=== PATIENT | female | born 1965 | race Caucasian/White ===

== ENCOUNTER 2017-01-02 06:18 | Inpatient (IN) | payer SELFPAY ==
[~2017-01-02] VITALS: Ht 154.9 cm; Wt 130.1 kg
[2017-01-02 07:09] LABS: BASOPHIL COUNT 0.1 K/uL (0-0.1); EOSINOPHIL (%) 0.9 % (0-5); EOSINOPHIL COUNT 0.1 K/uL (0-0.3); HEMATOCRIT 38.9 % (36.0-46.0); IMMATURE GRANULOCYTE (%) 0.5 % (0.0-0.7); IMMATURE GRANULOCYTE COUNT 0.1 K/uL; INSTRUMENT ABS NEUTROPHIL CT 9.3 K/uL; LYMPHOCYTE COUNT 1.3 K/uL (1.0-2.8); MCH 25.5 PG (29.0-34.0); MCHC 30.3 G/DL (30.0-36.0); MCV 84.2 FL (83-99); MEAN PLAT.VOLUME 9.6 uM^3 (9.5-12.4); MONOCYTE (%) 6.3 % (3-12); MONOCYTE COUNT 0.7 K/uL (0-0.8); NEUTROPHIL COUNT 9.3 K/uL (1.8-6.4); PLATELET COUNT 380 K/uL (156-360); RBC DIS.WIDTH-CV 16.6 % (11.8-14.6); RBC DIS.WIDTH-SD 51.2 % (39-53); RED BLOOD COUNT 4.62 M/uL (3.80-5.20); WHITE BLOOD COUNT 11.5 K/uL (4.1-10.2)
[2017-01-02 07:14] LABS: INTER. NORMALIZED RATIO 1.1; PROTHROMBIN TIME 12.9 SEC (10.2-12.9)
[2017-01-02 07:36] LABS: TROP-I INTERPRETATION NEGATIVE; TROPONIN-I 0.02 ng/mL (0.0-0.30)
[2017-01-02 07:53] LABS: ANION GAP 11 MEQ/L (2-14); CHLORIDE 102 MEQ/L (99-109); GFR ESTIMATE (CALCULATED) > 59 mL/min/; GLUCOSE 222 mg/dL (70-99); HDL CHOLESTEROL 34 MG/DL (Desirable>=50); LDL CHOLESTEROL 139 mg/dL (Desirable<100); NON-HDL CHOLESTEROL 166 mg/dL (Desirable<160); POTASSIUM 3.6 MEQ/L (3.7-5.4); SAMPLE HEMOLYSIS CHECK 0; SAMPLE ICTERIC CHECK 0; SAMPLE LIPEMIA CHECK 0; SODIUM 139 MEQ/L (136-147); TOTAL CHOLESTEROL 200 mg/dL (Desirable<200); TRIGLYCERIDES 135 MG/DL (Normal: <150); UREA NITROGEN (BUN) 14 mg/dL (9-23)
[2017-01-02 08:08] LABS: Estimated Average Glucose 183 mg/dL (70-123)
[2017-01-02 08:43] LABS: ADD MIUA? YES; BILIRUBIN NEGATIVE; BLOOD MODERATE; COLOR YELLOW ((YELLOW)); GLUCOSE (STRIP) NEGATIVE; KETONES NEGATIVE; LEUKOCYTES LARGE; NITRITE POSITIVE; PROTEIN (STRIP) >=500; SPECIFIC GRAVITY 1.011 (1.000-1.030); UROBILINOGEN 0.2 MG/DL (0.2-1.0)
[2017-01-02 09:02] LABS: BACTERIA 3+ /HPF; WHITE BLOOD CELLS TNTC /HPF (0-5)
[2017-01-02 09:03] LABS: CASTS NONE SEEN /LPF; CRYSTALS NONE SEEN; EPITHELIAL CELLS 1+ /HPF; MUCUS NONE SEEN /LPF; UCUL ADDED? YES
[2017-01-02] MEDS ORDERED: ADVIL,NUPRIN,M200 MG PO (10:41)
[2017-01-02 11:45] VITALS: BP 184/80
[2017-01-02 12:42] LABS: POINT-OF-CARE METER ID UU13113717
[2017-01-02 14:11] LABS: TROP-I INTERPRETATION NEGATIVE; TROPONIN-I 0.02 ng/mL (0.0-0.30)
[2017-01-02 16:00] VITALS: BP 174/81
[2017-01-02 17:07] LABS: POINT-OF-CARE METER ID UU14174225
[2017-01-02 19:53] VITALS: BP 167/81
[2017-01-02 19:53] LABS: TROP-I INTERPRETATION NEGATIVE; TROPONIN-I 0.03 ng/mL (0.0-0.30)
[2017-01-02 20:56] VITALS: BP 160/92
[2017-01-02 22:16] LABS: POINT-OF-CARE METER ID UU14174225
[2017-01-02 23:50] VITALS: BP 155/69
[2017-01-03 07:50] VITALS: BP 165/88
[2017-01-03 08:09] LABS: POINT-OF-CARE METER ID UU13113717
[2017-01-03 11:35] LABS: POINT-OF-CARE METER ID UU14188625
[2017-01-03 11:57] VITALS: BP 179/85
[2017-01-03 16:00] VITALS: BP 180/95
[2017-01-03 16:57] LABS: POINT-OF-CARE METER ID UU14174225
[2017-01-03 22:24] LABS: POINT-OF-CARE METER ID UU14188625
[2017-01-04 00:50] VITALS: BP 195/93
[2017-01-04 04:01] VITALS: BP 157/82
[2017-01-04 06:20] LABS: BASOPHIL COUNT 0.1 K/uL (0-0.1); EOSINOPHIL (%) 2.7 % (0-5); EOSINOPHIL COUNT 0.2 K/uL (0-0.3); HEMATOCRIT 34.9 % (36.0-46.0); IMMATURE GRANULOCYTE (%) 0.5 % (0.0-0.7); INSTRUMENT ABS NEUTROPHIL CT 5.7 K/uL; MCH 25.6 PG (29.0-34.0); MCHC 29.8 G/DL (30.0-36.0); MEAN PLAT.VOLUME 9.6 uM^3 (9.5-12.4); MONOCYTE (%) 9.9 % (3-12); MONOCYTE COUNT 0.8 K/uL (0-0.8); NEUTROPHIL (%) 73.6 % (45-76); NEUTROPHIL COUNT 5.7 K/uL (1.8-6.4); PLATELET COUNT 317 K/uL (156-360); RBC DIS.WIDTH-CV 17.1 % (11.8-14.6); RBC DIS.WIDTH-SD 53.9 % (39-53); RED BLOOD COUNT 4.06 M/uL (3.80-5.20); WHITE BLOOD COUNT 7.7 K/uL (4.1-10.2)
[2017-01-04 06:39] LABS: ANION GAP 10 MEQ/L (2-14); CHLORIDE 108 MEQ/L (99-109); GFR ESTIMATE (CALCULATED) > 59 mL/min/; GLUCOSE 150 mg/dL (70-99); POTASSIUM 4.4 MEQ/L (3.7-5.4); SAMPLE HEMOLYSIS CHECK 0; SAMPLE ICTERIC CHECK 0; SAMPLE LIPEMIA CHECK 0; SODIUM 142 MEQ/L (136-147); UREA NITROGEN (BUN) 18 mg/dL (9-23)
[2017-01-04 07:37] VITALS: BP 185/94
[2017-01-04 07:43] LABS: POINT-OF-CARE METER ID UU13113717
[2017-01-04 11:56] VITALS: BP 176/94
[2017-01-04 12:38] LABS: POINT-OF-CARE METER ID UU14174225
[2017-01-04 17:48] LABS: POINT-OF-CARE METER ID UU14174225
[2017-01-04 19:15] VITALS: BP 198/67
[2017-01-05 00:02] VITALS: BP 180/84
[2017-01-05 04:08] VITALS: BP 176/94
[2017-01-05 06:21] LABS: EOSINOPHIL (%) 3.5 % (0-5); EOSINOPHIL COUNT 0.2 K/uL (0-0.3); HEMATOCRIT 35.5 % (36.0-46.0); IMMATURE GRANULOCYTE (%) 0.9 % (0.0-0.7); IMMATURE GRANULOCYTE COUNT 0.1 K/uL; INSTRUMENT ABS NEUTROPHIL CT 4.7 K/uL; LYMPHOCYTE COUNT 1.2 K/uL (1.0-2.8); MCH 25.4 PG (29.0-34.0); MCHC 29.6 G/DL (30.0-36.0); MCV 85.7 FL (83-99); MEAN PLAT.VOLUME 9.5 uM^3 (9.5-12.4); MONOCYTE (%) 10.2 % (3-12); MONOCYTE COUNT 0.7 K/uL (0-0.8); NEUTROPHIL (%) 68.4 % (45-76); NEUTROPHIL COUNT 4.7 K/uL (1.8-6.4); PLATELET COUNT 314 K/uL (156-360); RBC DIS.WIDTH-CV 16.9 % (11.8-14.6); RBC DIS.WIDTH-SD 53.4 % (39-53); RED BLOOD COUNT 4.14 M/uL (3.80-5.20); WHITE BLOOD COUNT 6.9 K/uL (4.1-10.2)
[2017-01-05 06:44] LABS: ANION GAP 8 MEQ/L (2-14); CHLORIDE 107 MEQ/L (99-109); GFR ESTIMATE (CALCULATED) > 59 mL/min/; GLUCOSE 139 mg/dL (70-99); POTASSIUM 4.5 MEQ/L (3.7-5.4); SAMPLE HEMOLYSIS CHECK 0; SAMPLE ICTERIC CHECK 0; SAMPLE LIPEMIA CHECK 0; SODIUM 140 MEQ/L (136-147); UREA NITROGEN (BUN) 18 mg/dL (9-23)
[2017-01-05 07:05] LABS: POINT-OF-CARE METER ID UU13113717
[2017-01-05 07:38] VITALS: BP 180/86
[2017-01-05 08:00] VITALS: BP 170/90
[2017-01-05 09:07] VITALS: BP 160/80
[2017-01-05] MEDS ORDERED: CEFTIN500 MG PO (10:41)
[2017-01-05] MEDS ORDERED: ATORVASTATIN CA40 MG PO (10:41)
[2017-01-05] MEDS ORDERED: ASPIR-LOW81 MG PO (10:41)
[2017-01-05] MEDS ORDERED: CLOPIDOGREL75 MG PO (10:41)
[2017-01-05] MEDS ORDERED: LISINOPRIL20 MG PO (10:44)
[2017-01-05] MEDS ORDERED: GLUCOPHAGE500 MG PO (11:03)
[2017-01-05 12:00] LABS: POINT-OF-CARE METER ID UU13113717
== END 2017-01-05 13:23 | DRG 65 ==
LOC: EME 06:18 → EDOF 08:30 → 5SOUTH 08:30 → ENRESERV 08:31 → 5SOUTH 10:55 → ENPENDDIS 01-05 → 5SOUTH 01-05 13:23
PROVIDERS: Emergency Medicine; Internal Medicine; Student in an Organized Health Care Education/Training Program
DX: I63.10 Cerebral infarction due to embolism of unspecified precerebral artery (principal); G81.94 Hemiplegia, unspecified affecting left nondominant side; R29.810 Facial weakness; R47.81 Slurred speech; N39.0 Urinary tract infection, site not specified; I11.9 Hypertensive heart disease without heart failure; I16.0 Hypertensive urgency; E11.9 Type 2 diabetes mellitus without complications; R42 Dizziness and giddiness; D64.9 Anemia, unspecified; E66.01 Morbid (severe) obesity due to excess calories; E78.00 Pure hypercholesterolemia, unspecified; Z91.19 Patient's noncompliance with other medical treatment and regimen; Z68.43 Body mass index [BMI] 50.0-59.9, adult; Z79.82 Long term (current) use of aspirin; Z87.891 Personal history of nicotine dependence
CPT/HCPCS: 70450; 70496; 70498; 70551; 71020; 80048; 80061; 81003; 82948; 83036; 84484; 85025; 85610; 85730; 87077; 87086; 87186; 90686; 93005; 93306; 93880; 97530 GO; 97530 GP; 99281; 99285; J0696; J1650; J1815; J7030; J7050

== ENCOUNTER 2017-01-05 10:34 | Inpatient (IN) | payer OTHER ==
[~2017-01-05] VITALS: Ht 154.9 cm; Wt 133.3 kg
[~2017-01-05 10:34] MED LIST: ADVIL,NUPRIN,M200 MG PO
[2017-01-05] MEDS ORDERED: ATORVASTATIN CA40 MG PO (10:41)
[2017-01-05] MEDS ORDERED: ASPIR-LOW81 MG PO (10:41)
[2017-01-05] MEDS ORDERED: CEFTIN500 MG PO (10:41)
[2017-01-05] MEDS ORDERED: CLOPIDOGREL75 MG PO (10:41)
[2017-01-05] MEDS ORDERED: LISINOPRIL20 MG PO (10:44)
[2017-01-05] MEDS ORDERED: GLUCOPHAGE500 MG PO (11:03)
[2017-01-05 14:01] VITALS: BP 211/94
[2017-01-05 14:54] VITALS: BP 193/86
[2017-01-05 16:23] LABS: POINT-OF-CARE METER ID UU13113720
[2017-01-05 20:00] VITALS: BP 148/78
[2017-01-05 21:29] LABS: POINT-OF-CARE METER ID UU13113720
[2017-01-05 23:57] VITALS: BP 138/70
[2017-01-06 04:40] VITALS: BP 142/72
[2017-01-06 06:43] LABS: HEMATOCRIT 34.9 % (36.0-46.0); MCH 25.8 PG (29.0-34.0); MCHC 30.4 G/DL (30.0-36.0); MCV 84.9 FL (83-99); MEAN PLAT.VOLUME 9.5 uM^3 (9.5-12.4); PLATELET COUNT 337 K/uL (156-360); RBC DIS.WIDTH-SD 52.4 % (39-53); RED BLOOD COUNT 4.11 M/uL (3.80-5.20); WHITE BLOOD COUNT 8.9 K/uL (4.1-10.2)
[2017-01-06 06:52] LABS: POINT-OF-CARE METER ID UU14174215
[2017-01-06 07:12] LABS: ALKALINE PHOSPHATASE 77 IU/L (3-129); ANION GAP 8 MEQ/L (2-14); CHLORIDE 105 MEQ/L (99-109); GFR ESTIMATE (CALCULATED) > 59 mL/min/; GLUCOSE 140 mg/dL (70-99); POTASSIUM 4.9 MEQ/L (3.7-5.4); SAMPLE HEMOLYSIS CHECK 2; SAMPLE ICTERIC CHECK 0; SAMPLE LIPEMIA CHECK 0; SODIUM 137 MEQ/L (136-147); TOTAL BILIRUBIN 0.4 MG/DL (0.0-1.0); UREA NITROGEN (BUN) 21 mg/dL (9-23)
[2017-01-06 11:05] LABS: POINT-OF-CARE METER ID UU14174215
[2017-01-06 15:49] VITALS: BP 124/80
[2017-01-06 16:39] LABS: POINT-OF-CARE METER ID UU14174215
[2017-01-06 21:21] LABS: POINT-OF-CARE METER ID UU13113720
[2017-01-07 05:18] VITALS: BP 109/55
[2017-01-07 08:04] LABS: POINT-OF-CARE METER ID UU14174215; POINT-OF-CARE USER ID AHSSSJB31
[2017-01-07 11:40] LABS: POINT-OF-CARE METER ID UU14174215; POINT-OF-CARE USER ID AHSSSJB31
[2017-01-07 16:10] VITALS: BP 162/72
[2017-01-07 16:58] LABS: POINT-OF-CARE METER ID UU13113720
[2017-01-07 20:32] LABS: POINT-OF-CARE METER ID UU14174215
[2017-01-08 05:23] VITALS: BP 142/78
[2017-01-08 07:38] LABS: POINT-OF-CARE METER ID UU13113720; POINT-OF-CARE USER ID ENVGAF
[2017-01-08 11:58] LABS: POINT-OF-CARE METER ID UU13113720; POINT-OF-CARE USER ID ENVGAF
[2017-01-08 15:32] VITALS: BP 158/70
[2017-01-08 16:24] LABS: POINT-OF-CARE METER ID UU13113720
[2017-01-08 21:05] LABS: POINT-OF-CARE METER ID UU14174215
[2017-01-09 05:01] VITALS: BP 152/80
[2017-01-09 08:10] LABS: POINT-OF-CARE METER ID UU13113720; POINT-OF-CARE USER ID AHSSSJB31
[2017-01-09 11:26] LABS: POINT-OF-CARE METER ID UU13113720; POINT-OF-CARE USER ID AHSSSJB31
[2017-01-09 16:00] VITALS: BP 160/78
[2017-01-09 16:42] LABS: POINT-OF-CARE METER ID UU13113720; POINT-OF-CARE USER ID AHSSSJB31
[2017-01-09 21:09] LABS: POINT-OF-CARE METER ID UU13113720
[2017-01-10 04:49] VITALS: BP 132/72
[2017-01-10 07:41] LABS: POINT-OF-CARE METER ID UU14174215; POINT-OF-CARE USER ID AHSSSJB31
[2017-01-10 11:56] LABS: POINT-OF-CARE METER ID UU14174215; POINT-OF-CARE USER ID AHSSSJB31
[2017-01-10 15:37] VITALS: BP 148/68
[2017-01-10 16:11] LABS: POINT-OF-CARE METER ID UU14174215
[2017-01-10 20:46] LABS: POINT-OF-CARE METER ID UU14174215
[2017-01-11 06:06] VITALS: BP 115/62
[2017-01-11 07:52] LABS: POINT-OF-CARE METER ID UU13113720
[2017-01-11 11:46] LABS: POINT-OF-CARE METER ID UU14174215
[2017-01-11 15:26] VITALS: BP 140/70
[2017-01-11 16:54] LABS: POINT-OF-CARE METER ID UU14174215
[2017-01-11 20:43] LABS: POINT-OF-CARE METER ID UU14174215
[2017-01-12 06:44] VITALS: BP 130/58
[2017-01-12 07:56] LABS: POINT-OF-CARE METER ID UU14174215
[2017-01-12 12:13] LABS: POINT-OF-CARE METER ID UU14174215; POINT-OF-CARE USER ID AHSSSJB31
[2017-01-12 15:15] VITALS: BP 128/72
[2017-01-12 16:43] LABS: POINT-OF-CARE METER ID UU14174215
[2017-01-12 21:45] LABS: POINT-OF-CARE METER ID UU14174215
[2017-01-13 05:16] VITALS: BP 138/56
[2017-01-13 07:27] LABS: POINT-OF-CARE METER ID UU14174215
[2017-01-13 11:36] LABS: POINT-OF-CARE METER ID UU14174215
[2017-01-13 15:31] VITALS: BP 138/78
[2017-01-13 16:22] LABS: POINT-OF-CARE METER ID UU13113720
[2017-01-13 21:38] LABS: POINT-OF-CARE METER ID UU13113720
[2017-01-14 04:41] VITALS: BP 118/62
[2017-01-14 07:55] LABS: POINT-OF-CARE METER ID UU14174215; POINT-OF-CARE USER ID AHSSSJB31
[2017-01-14 10:48] VITALS: BP 162/76
[2017-01-14 11:59] LABS: POINT-OF-CARE METER ID UU14174215; POINT-OF-CARE USER ID AHSSSJB31
[2017-01-14 15:51] VITALS: BP 140/82
[2017-01-14 16:19] LABS: POINT-OF-CARE METER ID UU14174215
[2017-01-14 21:00] LABS: POINT-OF-CARE METER ID UU13113720
[2017-01-15 05:21] VITALS: BP 125/64
[2017-01-15 07:53] LABS: POINT-OF-CARE METER ID UU14174215; POINT-OF-CARE USER ID AHSSSJB31
[2017-01-15 10:13] VITALS: BP 152/76
[2017-01-15 12:28] LABS: POINT-OF-CARE METER ID UU13113720; POINT-OF-CARE USER ID AHSSSJB31
[2017-01-15 15:57] VITALS: BP 156/78
[2017-01-15 16:37] VITALS: BP 132/70
[2017-01-15 16:42] LABS: POINT-OF-CARE METER ID UU14174215
[2017-01-16 05:27] VITALS: BP 118/80
[2017-01-16 07:05] LABS: POINT-OF-CARE METER ID UU13113720; POINT-OF-CARE USER ID ENVGAF
[2017-01-16 15:46] VITALS: BP 145/82
[2017-01-17 06:05] VITALS: BP 118/62
[2017-01-17 07:00] LABS: POINT-OF-CARE METER ID UU13113720; POINT-OF-CARE USER ID ENVGAF
[2017-01-17 15:19] VITALS: BP 138/85
[2017-01-18 05:57] VITALS: BP 134/79
[2017-01-18 08:00] LABS: POINT-OF-CARE METER ID UU13113720; POINT-OF-CARE USER ID AHSSSJB31
[2017-01-18 16:12] VITALS: BP 138/79
[2017-01-19 06:35] VITALS: BP 128/79
[2017-01-19 07:29] LABS: POINT-OF-CARE METER ID UU14174215; POINT-OF-CARE USER ID AHSSSJB31
[2017-01-19 16:04] VITALS: BP 138/85
[2017-01-20 06:16] VITALS: BP 122/78
[2017-01-20 07:30] LABS: POINT-OF-CARE METER ID UU14174215; POINT-OF-CARE USER ID AHSSSJB31
[2017-01-20] MEDS ORDERED: GLUCOPHAGE500 MG PO (13:25)
[2017-01-20] MEDS ORDERED: ATORVASTATIN CA40 MG PO (13:25)
[2017-01-20] MEDS ORDERED: CLOPIDOGREL75 MG PO (13:25)
[2017-01-20] MEDS ORDERED: LISINOPRIL20 MG PO (13:25)
[2017-01-20 15:52] VITALS: BP 124/82
[2017-01-21 05:24] LABS: HEMATOCRIT 35.5 % (36.0-46.0); MCHC 30.1 G/DL (30.0-36.0); MCV 86.2 FL (83-99); MEAN PLAT.VOLUME 9.9 uM^3 (9.5-12.4); PLATELET COUNT 391 K/uL (156-360); RBC DIS.WIDTH-CV 16.9 % (11.8-14.6); RBC DIS.WIDTH-SD 53.5 % (39-53); RED BLOOD COUNT 4.12 M/uL (3.80-5.20); WHITE BLOOD COUNT 9.4 K/uL (4.1-10.2)
[2017-01-21 05:25] VITALS: BP 128/76
[2017-01-21 05:46] LABS: ALKALINE PHOSPHATASE 82 IU/L (3-129); ANION GAP 10 MEQ/L (2-14); CHLORIDE 108 MEQ/L (99-109); GFR ESTIMATE (CALCULATED) 50 mL/min/; GLUCOSE 114 mg/dL (70-99); POTASSIUM 4.5 MEQ/L (3.7-5.4); SAMPLE HEMOLYSIS CHECK 0; SAMPLE ICTERIC CHECK 0; SAMPLE LIPEMIA CHECK 0; SODIUM 141 MEQ/L (136-147); TOTAL BILIRUBIN 0.3 MG/DL (0.0-1.0); UREA NITROGEN (BUN) 36 mg/dL (9-23)
[2017-01-21 07:02] LABS: POINT-OF-CARE METER ID UU14174215; POINT-OF-CARE USER ID ENVGAF
[2017-01-21 08:49] VITALS: BP 130/68
[2017-01-21 15:10] VITALS: BP 130/72
[2017-01-22 05:48] VITALS: BP 138/72
[2017-01-22 07:08] LABS: POINT-OF-CARE METER ID UU14174215; POINT-OF-CARE USER ID ENVGAF
[2017-01-22 07:51] VITALS: BP 132/68
== END 2017-01-22 14:10 | DRG 57 ==
LOC: 3WEST 10:34 → ENPENDDIS 01-22 → 3WEST 01-22 14:10
PROVIDERS: Physical Medicine & Rehabilitation Pain Medicine
DX: I69.354 Hemiplegia and hemiparesis following cerebral infarction affecting left non-dominant side (principal); N39.0 Urinary tract infection, site not specified; B96.20 Unspecified Escherichia coli [E. coli] as the cause of diseases classified elsewhere; E83.51 Hypocalcemia; R25.3 Fasciculation; R26.9 Unspecified abnormalities of gait and mobility; D64.9 Anemia, unspecified; I11.9 Hypertensive heart disease without heart failure; E11.9 Type 2 diabetes mellitus without complications; E78.5 Hyperlipidemia, unspecified; M25.569 Pain in unspecified knee; E66.01 Morbid (severe) obesity due to excess calories; Z68.43 Body mass index [BMI] 50.0-59.9, adult; Z82.49 Family history of ischemic heart disease and other diseases of the circulatory system
CPT/HCPCS: 80053; 82948; 85027; 97110 GO; 97112 GO; 97530 GP; G0283 GO; J1644; J1650; J1815

== ENCOUNTER 2017-03-14 18:18 | Emergency (ER) | payer OTHER ==
[~2017-03-14] VITALS: Ht 154.9 cm; Wt 116.6 kg
[~2017-03-14 18:18] MED LIST changes: +ASPIR-LOW81 MG PO; +ATORVASTATIN CA40 MG PO; +CEFTIN500 MG PO; +CLOPIDOGREL75 MG PO; +GLUCOPHAGE500 MG PO; +LISINOPRIL20 MG PO
[2017-03-14 22:40] LABS: HEMATOCRIT 35.4 % (36.0-46.0); HEMOGLOBIN 11.2 G/DL (11.9-15.5); MCH 27.1 PG (29.0-34.0); MCHC 31.6 G/DL (30.0-36.0); MCV 85.7 FL (83-99); PLATELET COUNT 345 K/uL (156-360); RBC DIS.WIDTH-CV 16.3 % (11.8-14.6); RBC DIS.WIDTH-SD 51.4 % (39-53); RED BLOOD COUNT 4.13 M/uL (3.80-5.20); WHITE BLOOD COUNT 12.4 K/uL (4.1-10.2)
[2017-03-14 22:54] LABS: CHLORIDE 105 mEq/L (99-109); POTASSIUM 4.1 mEq/L (3.7-5.4); SODIUM 139 mEq/L (136-147)
[2017-03-14 22:56] LABS: GLUCOSE 101 mg/dL (70-99)
[2017-03-14 23:00] LABS: CREATININE 1.4 mg/dL (0.6-1.3); GFR ESTIMATE (CALCULATED) 42 mL/min/
[2017-03-14 23:01] LABS: UREA NITROGEN (BUN) 32 mg/dL (9-23)
[2017-03-14 23:30] LABS: CREATINE KINASE 37 IU/L (1-294)
[2017-03-14] MEDS ORDERED: NORCO 5/3251 TABLET PO (23:43)
[2017-03-14] MEDS ORDERED: SKELAXIN800 MG PO (23:43)
[2017-03-14 23:57] VITALS: BP 137/65
== END 2017-03-14 23:59 | disposition home or self-care (01) ==
LOC: RME 18:18 → EME 18:18 → RME 23:59
PROVIDERS: Physician Assistant
DX: M72.2 Plantar fascial fibromatosis (principal); M79.1 Myalgia; I10 Essential (primary) hypertension; M79.605 Pain in left leg; I69.354 Hemiplegia and hemiparesis following cerebral infarction affecting left non-dominant side; Z79.02 Long term (current) use of antithrombotics/antiplatelets; E78.5 Hyperlipidemia, unspecified; Z87.891 Personal history of nicotine dependence
CPT/HCPCS: 73630; 80048; 82550; 85027; 93971; 99281; 99284

== ENCOUNTER → 2017-03-30 | Outpatient (CLI) | payer OTHER ==
[~2017-03-30] MED LIST changes: +NORCO 5/3251 TABLET PO; +SKELAXIN800 MG PO
== END | disposition home or self-care (01) ==
LOC: RAD 10:20
DX: M25.512 Pain in left shoulder (principal)
CPT/HCPCS: 73030

== ENCOUNTER 2017-04-06 11:17 | Emergency (ER) | payer OTHER ==
[~2017-04-06] VITALS: Ht 154.9 cm; Wt 114.5 kg
[2017-04-06 11:48] LABS: HEMATOCRIT 33.9 % (36.0-46.0); HEMOGLOBIN 10.6 G/DL (11.9-15.5); MCH 27.1 PG (29.0-34.0); MCHC 31.3 G/DL (30.0-36.0); MCV 86.7 FL (83-99); PLATELET COUNT 416 K/uL (156-360); RBC DIS.WIDTH-CV 16.8 % (11.8-14.6); RBC DIS.WIDTH-SD 52.8 % (39-53); RED BLOOD COUNT 3.91 M/uL (3.80-5.20); WHITE BLOOD COUNT 13.1 K/uL (4.1-10.2)
[2017-04-06 11:55] LABS: ALBUMIN 4.3 g/dL (3.2-4.8)
[2017-04-06 11:56] LABS: CHLORIDE 105 mEq/L (99-109); POTASSIUM 4.1 mEq/L (3.7-5.4); SODIUM 139 mEq/L (136-147)
[2017-04-06 11:58] LABS: GLUCOSE 132 mg/dL (70-99); TOTAL PROTEIN 7.9 g/dL (6.4-8.3)
[2017-04-06 12:00] LABS: TOTAL BILIRUBIN 0.3 mg/dL (0.0-1.0)
[2017-04-06 12:01] LABS: ALKALINE PHOSPHATASE 102 IU/L (3-129)
[2017-04-06 12:02] LABS: GFR ESTIMATE (CALCULATED) 29 mL/min/
[2017-04-06 12:03] LABS: AST (GOT) 43 IU/L (2-34); CREATININE 1.9 mg/dL (0.6-1.3); UREA NITROGEN (BUN) 43 mg/dL (9-23)
[2017-04-06 12:04] LABS: ALT (GPT) 44 IU/L (3-49)
[2017-04-06 14:20] VITALS: BP 147/70
== END 2017-04-06 14:22 | disposition home or self-care (01) ==
LOC: EME 11:17
DX: R79.89 Other specified abnormal findings of blood chemistry (principal); E11.9 Type 2 diabetes mellitus without complications; I10 Essential (primary) hypertension; E78.5 Hyperlipidemia, unspecified; Z86.73 Personal history of transient ischemic attack (TIA), and cerebral infarction without residual deficits
CPT/HCPCS: 80053; 85027; 99281; 99284

== ENCOUNTER → 2017-04-09 | Outpatient (CLI) | payer OTHER | END | disposition home or self-care (01) | LOC: RAD 10:54 | DX: N20.0 Calculus of kidney (principal); N13.30 Unspecified hydronephrosis; N26.9 Renal sclerosis, unspecified | CPT/HCPCS: 76770 ==

== ENCOUNTER → 2017-06-07 | Outpatient (CLI) | payer OTHER | END | disposition home or self-care (01) | LOC: RAD 08:46 | DX: N20.0 Calculus of kidney (principal); N28.9 Disorder of kidney and ureter, unspecified; K42.9 Umbilical hernia without obstruction or gangrene; K57.30 Diverticulosis of large intestine without perforation or abscess without bleeding; M47.9 Spondylosis, unspecified; Z90.49 Acquired absence of other specified parts of digestive tract | CPT/HCPCS: 74176 ==

== ENCOUNTER → 2017-06-17 | Outpatient (CLI) | payer OTHER | END | disposition home or self-care (01) | LOC: RAD 09:37 | DX: D25.9 Leiomyoma of uterus, unspecified (principal); N88.8 Other specified noninflammatory disorders of cervix uteri | CPT/HCPCS: 76856 ==

== ENCOUNTER → 2017-08-26 | Outpatient (CLI) | payer OTHER ==
[~2017-08-26] MED LIST changes: +ALLOPURINOL100 MG PO; +BACTRIM,SEPT1 TABLET PO; +COLACE100 MG PO; +COZAAR50 MG PO; +CRESTOR40 MG PO; +ERGOCALCIF50000 UNIT PO; +FEOSOL325 MG PO; +HYDROCHLOROTHIA25 MG PO; +JANUVIA25 MG PO; +MAGNESIUM400 M1 PO; +NASONEX17 GM BOTH NARES; +NORVASC5 MG PO; +PERCOCET 5/31 TABLET PO; +PLAVIX75 MG PO; +SUPER CALCIUM600 MG PO; +VITAMIN D32000 UNI1 PO; +VITAMIN D33000 UNIT PO; +ZOFRAN ODT4 MG PO; +ZYLOPRIM100 MG PO; +ZYRTEC10 M3 PO
== END | disposition home or self-care (01) ==
LOC: EKG 09:16
DX: Z01.810 Encounter for preprocedural cardiovascular examination (principal); N20.0 Calculus of kidney; I45.4 Nonspecific intraventricular block
CPT/HCPCS: 93005

== ENCOUNTER 2017-08-30 18:05 | Emergency (ER) | payer OTHER ==
[~2017-08-30] VITALS: Ht 154.9 cm; Wt 116.1 kg
[~2017-08-30 18:05] MED LIST changes: -COLACE100 MG PO; -DOCUSATE SODIU100 MG PO; -PERCOCET 5/31 TABLET PO; -TAMSULOSIN HCL0.4 MG PO; -ZOFRAN ODT4 MG PO
[2017-08-30 19:34] LABS: BASOPHIL (%) 0.2 % (0-1); EOSINOPHIL (%) 0 % (0-5); HEMATOCRIT 33.4 % (36.0-46.0); HEMOGLOBIN 10.6 G/DL (11.9-15.5); IMMATURE GRANULOCYTE (%) 0.4 % (0.0-0.7); LYMPHOCYTE (%) 2.2 % (15-42); LYMPHOCYTE COUNT 0.4 K/uL (1.0-2.8); MCH 26.5 PG (29.0-34.0); MCHC 31.7 G/DL (30.0-36.0); MCV 83.5 FL (83-99); MONOCYTE COUNT 0.7 K/uL (0-0.8); NEUTROPHIL (%) 93.2 % (45-76); NEUTROPHIL COUNT 15.7 K/uL (1.8-6.4); PLATELET COUNT 319 K/uL (156-360); RBC DIS.WIDTH-CV 15.9 % (11.8-14.6); RBC DIS.WIDTH-SD 48.9 % (39-53); WHITE BLOOD COUNT 16.8 K/uL (4.1-10.2)
[2017-08-30 19:43] LABS: INTER. NORMALIZED RATIO 1.2
[2017-08-30 19:46] LABS: PTT 27.3 SEC (25-37)
[2017-08-30 19:47] LABS: CHLORIDE 103 mEq/L (99-109); POTASSIUM 4.3 mEq/L (3.7-5.4); SODIUM 137 mEq/L (136-147)
[2017-08-30 19:49] LABS: GLUCOSE 163 mg/dL (70-99)
[2017-08-30 19:53] LABS: CREATININE 1.9 mg/dL (0.6-1.3); GFR ESTIMATE (CALCULATED) 29 mL/min/
[2017-08-30 19:54] LABS: UREA NITROGEN (BUN) 37 mg/dL (9-23)
[2017-08-30 20:33] LABS: APPEARANCE TURBID ((CLEAR)); BILIRUBIN NEGATIVE; BLOOD LARGE; COLOR RED ((YELLOW)); GLUCOSE (STRIP) NEGATIVE; KETONES NEGATIVE; LEUKOCYTES SMALL; NITRITE NEGATIVE; PROTEIN (STRIP) 100; SPECIFIC GRAVITY 1.017 (1.000-1.030); UROBILINOGEN 0.2 MG/DL (0.2-1.0)
[2017-08-30 20:57] LABS: RED BLOOD CELLS TNTC /HPF (0-5); UCUL ADDED? YES
[2017-08-30] MEDS ORDERED: ZOFRAN ODT4 MG PO (23:10)
[2017-08-30] MEDS ORDERED: PERCOCET 5/31 TABLET PO (23:10)
[2017-08-30] MEDS ORDERED: COLACE100 MG PO (23:13)
[2017-08-30 23:42] VITALS: BP 164/99
== END 2017-08-30 23:43 | disposition home or self-care (01) ==
LOC: EME 18:05
PROVIDERS: Emergency Medicine
DX: G89.18 Other acute postprocedural pain (principal); N20.0 Calculus of kidney; Z98.890 Other specified postprocedural states; R10.32 Left lower quadrant pain; R11.0 Nausea; R30.0 Dysuria; K42.9 Umbilical hernia without obstruction or gangrene; J98.11 Atelectasis; I12.9 Hypertensive chronic kidney disease with stage 1 through stage 4 chronic kidney disease, or unspecified chronic kidney disease; N18.9 Chronic kidney disease, unspecified; E78.5 Hyperlipidemia, unspecified; Z86.73 Personal history of transient ischemic attack (TIA), and cerebral infarction without residual deficits; Z79.02 Long term (current) use of antithrombotics/antiplatelets
CPT/HCPCS: 74176; 80048; 81003; 85025; 85610; 85730; 87086; 99281; 99284; J2405; J3010; J7040

== ENCOUNTER → 2017-08-30 | Outpatient (CLI) | payer OTHER ==
[~2017-08-30] MED LIST changes: +DOCUSATE SODIU100 MG PO; +TAMSULOSIN HCL0.4 MG PO
== END | disposition home or self-care (01) ==
LOC: OPR 08:12 → EDSTATUS 09:00
PROVIDERS: Urology
PROC: 0T9100Z Drainage of Left Kidney with Drainage Device, Open Approach (ICD-10-PCS; principal; 2017-08-30)
DX: N20.0 Calculus of kidney (principal)
CPT/HCPCS: 50433; 82948; C1766; C1894; J3010

== ENCOUNTER 2017-09-01 05:08 | Day surgery (SDC) | payer OTHER ==
[~2017-09-01] VITALS: Ht 154.9 cm; Wt 112.5 kg
[~2017-09-01 05:08] MED LIST changes: +COLACE100 MG PO; +PERCOCET 5/31 TABLET PO; +ZOFRAN ODT4 MG PO
[2017-09-01 06:42] VITALS: BP 106/54
[2017-09-01] MEDS ORDERED: BACTRIM,SEPT1 TABLET PO (09:54)
[2017-09-01] MEDS ORDERED: DOCUSATE SODIU100 MG PO (09:54)
[2017-09-01] MEDS ORDERED: PERCOCET 5/31 TABLET PO (09:54)
[2017-09-01] MEDS ORDERED: TAMSULOSIN HCL0.4 MG PO (09:54)
[2017-09-01 11:14] VITALS: BP 124/67
[2017-09-01 14:02] LABS: HEMATOCRIT 30.3 % (36.0-46.0); HEMOGLOBIN 9.3 G/DL (11.9-15.5); MCHC 30.7 G/DL (30.0-36.0); MCV 84.6 FL (83-99); PLATELET COUNT 273 K/uL (156-360); RBC DIS.WIDTH-CV 15.9 % (11.8-14.6); RED BLOOD COUNT 3.58 M/uL (3.80-5.20); WHITE BLOOD COUNT 12.1 K/uL (4.1-10.2)
[2017-09-01 14:20] LABS: CHLORIDE 100 MEQ/L (99-109); CREATININE 1.8 MG/DL (0.6-1.3); GFR ESTIMATE (CALCULATED) 31 mL/min/; GLUCOSE 167 mg/dL (70-99); POTASSIUM 4.4 MEQ/L (3.7-5.4); SODIUM 134 MEQ/L (136-147); UREA NITROGEN (BUN) 35 mg/dL (9-23)
[2017-09-01 16:13] VITALS: BP 151/72
[2017-09-01 19:48] VITALS: BP 124/65
[2017-09-01 23:45] VITALS: BP 103/54
[2017-09-02 04:38] VITALS: BP 100/54
[2017-09-02 07:44] VITALS: BP 99/52
[2017-09-02 11:36] VITALS: BP 124/57
== END 2017-09-02 12:54 | disposition home or self-care (01) ==
LOC: SDC 05:08 → 2SOUTH 09:27 → 2EAST 09:27 → 2SOUTH 09:27 → ENRESERV 09:36 → 2EAST 10:49 → SDC 10:58 → 2EAST 09-02 12:54
PROVIDERS: Urology
DX: N20.0 Calculus of kidney (principal); I12.9 Hypertensive chronic kidney disease with stage 1 through stage 4 chronic kidney disease, or unspecified chronic kidney disease; E11.22 Type 2 diabetes mellitus with diabetic chronic kidney disease; N18.3 Chronic kidney disease, stage 3 (moderate); E78.5 Hyperlipidemia, unspecified; R94.31 Abnormal electrocardiogram [ECG] [EKG]; I51.7 Cardiomegaly; I69.354 Hemiplegia and hemiparesis following cerebral infarction affecting left non-dominant side; E66.01 Morbid (severe) obesity due to excess calories; Z68.42 Body mass index [BMI] 45.0-49.9, adult; D64.9 Anemia, unspecified; Z79.02 Long term (current) use of antithrombotics/antiplatelets
CPT/HCPCS: 71046; 74485; 80048; 82365 90; 82948; 85027; 86850; 86900; 86901; C1726; C1766; C1769; C2625; G0378; J0131; J0330; J0696; J1030; J1170; J1644; J2250; J2270; J2405; J2710; J3010; J7120; J7643; S0020

== ENCOUNTER 2017-09-06 12:35 | Emergency (ER) | payer OTHER ==
[~2017-09-06] VITALS: Ht 154.9 cm; Wt 112.0 kg
[~2017-09-06 12:35] MED LIST changes: +DOCUSATE SODIU100 MG PO; +TAMSULOSIN HCL0.4 MG PO
[2017-09-06] MEDS ORDERED: FLEET ENEMA-AD118 ML PR (15:20)
[2017-09-06 15:34] VITALS: BP 157/72
== END 2017-09-06 15:35 | disposition home or self-care (01) ==
LOC: EME 12:35
DX: K59.03 Drug induced constipation (principal); T40.2X5A Adverse effect of other opioids, initial encounter; I12.9 Hypertensive chronic kidney disease with stage 1 through stage 4 chronic kidney disease, or unspecified chronic kidney disease; E11.22 Type 2 diabetes mellitus with diabetic chronic kidney disease; N18.9 Chronic kidney disease, unspecified; E78.5 Hyperlipidemia, unspecified; Z87.442 Personal history of urinary calculi; Z90.49 Acquired absence of other specified parts of digestive tract; Z86.73 Personal history of transient ischemic attack (TIA), and cerebral infarction without residual deficits; Z79.02 Long term (current) use of antithrombotics/antiplatelets; Z79.84 Long term (current) use of oral hypoglycemic drugs
CPT/HCPCS: 74022; 99281; 99285

== ENCOUNTER → 2017-09-20 | Outpatient (CLI) | payer OTHER ==
[~2017-09-20] MED LIST changes: +FLEET ENEMA-AD118 ML PR
== END | disposition home or self-care (01) ==
LOC: RAD 09:44
DX: N20.0 Calculus of kidney (principal); Z96.0 Presence of urogenital implants
CPT/HCPCS: 74018